=== PATIENT | female | born 1995 | race American Indian/Alaskan Native ===

== ENCOUNTER 2021-06-10 21:22 | Emergency (ER) | payer SELFPAY ==
[2021-06-10] MEDS ORDERED: SODIUM CHLORIDE 0.9% 1000 ML 1,000 ML IV ONE (21:35)
--- NOTE | 2021-06-10 21:40 | Emergency Department Report ---
ED CPR HPI - General Stated Complaint: CARDIAC ARREST Time Seen by Provider: 06/10/21 21:33 Source: EMS Limitations: Physical Limitation - History of Present Illness Initial Comments: 26-year-old female, history of pseudoseizures, presents to ED following cardiac arrest. Per medic, EMS was called to patient's home twice earlier today. Both calls were for seizure-like activity. Following the first call at around 11 AM, patient was not transported. EMS reports during the second call at approximatel y 3 PM, family stated EMS did not know what was going on and stated that her symptoms were due to "black magic." EMS was walking patient to the ambulance when family stated that they do not want her to be transported. Patient agree that she did not want to be transported at that time. Medic states during both cause, patient was alert and was able to follow instructions but was "kind of out of it." Third call was for patient being unresponsive. Upon EMS arrival, patient was in asystole. She was intubated, ACLS was initiated. Patient was given epi x2 and Narcan x1. Accucheck in the 200's. Patient did have return of pulses following approximately 10 minutes of ACLS. Monitor currently showing sinus tachycardia. Patient arrived with right mainstem intubation, per auscultation. ET tube was adjusted so that bilateral breath sounds were obtained. MD Complaint: found unresponsive Place: home Bystander CPR Performed: No Shock Advised: No Initial Findings in the Field: unresponsive, no respirations, no pulse, other rhythm (Asystole) ROSC in the Field: Yes Treatments Prior to Arrival: intubation, chest compressions, epinephrine mgs # (2), other (Narcan x1) - Related Data Home Medications Medication Instructions Recorded Confirmed Last Taken No Known Home Medications [No 08/25/13 08/25/13 Unknown Reported Home Medications] Previous Rx's Medication Instructions Recorded Last Taken Type Ibuprofen [Motrin] 600 mg PO Q8H PRN #14 tablet 08/26/13 Unknown Rx Allergies Allergy/AdvReac Type Severity Reaction Status Date / Time No Known Allergies Allergy Unverified 08/25/13 23:12 ED Review of Systems ROS: Stated complaint: CARDIAC ARREST Other details as noted in HPI Comment: Unobtainable due to pts medical conditions Neurological: other (Seizure-like activity reported) ED Past Medical Hx - Past Medical History Hx Asthma: Yes - Social History Smoking Status: Never Smoker Substance Use Type: None - Medications Home Medications: Home Medications Medication Instructions Recorded Confirmed Last Taken Type No Known Home Medications [No 08/25/13 08/25/13 Unknown History Reported Home Medications] Ibuprofen [Motrin] 600 mg PO Q8H PRN #14 tablet 08/26/13 Unknown Rx ED Physical Exam - Head Head exam: Present: atraumatic, normocephalic - ENT ENT exam: Present: other (ET tube in place) - Neck Neck exam: Present: normal inspection - Respiratory Respiratory exam: Present: normal lung sounds bilaterally - Cardiovascular Cardiovascular Exam: Present: normal rhythm, tachycardia - GI/Abdominal GI/Abdominal exam: Present: soft. Absent: distended - Extremities Exam Extremities exam: Present: normal inspection - Skin Skin exam: Present: warm, dry, intact, normal color ED Course Vital Signs 06/10/21 21:29 Temperature 98.2 F Pulse Rate 117 H Respiratory 22 Rate Blood Pressure 98/41 Blood Pressure 89/40 [Right] O2 Sat by Pulse 100 Oximetry - Reevaluation(s) Reevaluation #1: 06/10/21 22:26 Called to bedside for loss of pulses. Pt was coded again for approx 20 min. Please see code sheet for details. Unable to obtain ROSC. Rhythm of asystole the entire time. Time of 22:21. ED Medical Decision Making - Lab Data Result diagrams: 06/10/21 21:41 06/10/21 21:41 - Medical Decision Making 26-year-old female presents to ED post cardiac arrest. EMS did achieve ROSC and patient arrived with palpable pulses. Soon after arrival, patient then arres sandra again here in the ED. ACLS was done according to protocol, however we did not ROSC. Unable to order any further workup, such as CT scans due to pt's continued arrest. Time of 22:21. Family notified. - Differential Diagnosis overdose, intracranial abnormality, PE, seizure, arrhythmia Critical care attestation.: If time is entered above; I have spent that time in minutes in the direct care of this critically ill patient, excluding procedure time. ED Disposition Clinical Impression: Cardiac arrest Disposition: DC-20 Is pt being admited?: No Condition: Stable
[2021-06-10 21:45] VITALS: BP 98/41
[2021-06-10 21:49] LABS: Mean Corpuscular HGB Conc 31 % (30-34); Mean Corpuscular Volume 94 fl (79-97); Platelet Count 383 K/mm3 (140-440); Red Blood Count 3.75 M/mm3 (3.65-5.03); Red Cell Distribution Width 15.3 % (13.2-15.2)
[2021-06-10] MEDS ORDERED: NALOXONE 2 MG/2 ML INJ IV ONE (21:53)
[2021-06-10] MEDS ORDERED: SODIUM BICARB 8.4% 50 MEQ/50 ML SYRINGE IV ONE (21:55)
[2021-06-10] MEDS ORDERED: DEXTROSE 50% IN WATER (25GM) 50 ML SYRINGE IV ONE (21:55)
[2021-06-10] MEDS ORDERED: EPINEPHrine 1 MG/10 ML SYRINGE ONE (21:55)
[2021-06-10] MEDS ORDERED: NALOXONE 0.4 MG/1 ML INJ ONE (21:55)
[2021-06-10 22:08] LABS: INR 1.43 (0.87-1.13)
[2021-06-10 22:09] LABS: Partial Thromboplastin Time 46.7 Sec. (24.2-36.6)
--- NOTE | 2021-06-10 22:12 | XRay Report ---
CHEST 1 VIEW 06/10/2021 9:04 PM INDICATION / CLINICAL INFORMATION: cardiac arrest. COMPARISON: None available. FINDINGS: SUPPORT DEVICES: An ET tube has been placed with the tip located 3.2 cm above the staci. HEART / MEDIASTINUM: No significant abnormality. LUNGS / PLEURA: The lungs are clear with reduced volumes. No significant pleural effusion. No pneumot horax. ADDITIONAL FINDINGS: Moderate generalized distention of the GI tract may be related to resuscitation efforts. IMPRESSION: 1. No acute abnormality of the chest. 2. Additional findings as above. Signer Name: Josué Carlton MD Signed: 06/10/2021 10:08 PM Workstation Name: [id number]
[2021-06-10 22:15] LABS: Alanine Aminotransferase 61 units/L (7-56); Albumin 3.9 g/dL (3.9-5); BUN/Creatinine Ratio 5; Blood Urea Nitrogen 9 mg/dL (7-17); Calcium 8.5 mg/dL (8.4-10.2); Hemolysis Index 13
[2021-06-10 22:18] LABS: Hematocrit 35.3 % (30.3-42.9); Hemoglobin 10.8 gm/dl (10.1-14.3)
[2021-06-10 22:44] LABS: Bilirubin,Direct < 0.2 mg/dL (0-0.2)
[2021-06-10 23:21] LABS: Total Cells Counted 100
[2021-06-10 23:22] LABS: Anisocytosis RARE
[2021-06-11 16:49] LABS: Chol/HDL Ratio 2.06 %; HDL Cholesterol 58 mg/dL (40-59); LDL Cholesterol,Direct 66 mg/dL (50-130)
== END 2021-06-11 01:38 ==
LOC: ED 21:22
DX: I46.9 Cardiac arrest, cause unspecified (principal); J45.909 Unspecified asthma, uncomplicated; Z79.1 Long term (current) use of non-steroidal anti-inflammatories (NSAID)
CPT/HCPCS: 36415; 71045; 80048; 80061; 80076; 82140; 82962; 83880; 84484; 84703; 85007; 85025; 85610; 85730; 87040; 99285; J0171; J2310; 80320; G0480